=== PATIENT | female | born 1970 | race Caucasian/White ===

== ENCOUNTER → 2017-08-10 | Outpatient (CLI) | payer OTHER | LOC: BMCIMAGING 11:14 | PROVIDERS: ATTEND Internal Medicine Rheumatology | DX: Z03.89 Encounter for observation for other suspected diseases and conditions ruled out (principal); M17.12 Unilateral primary osteoarthritis, left knee; M79.641 Pain in right hand; M79.642 Pain in left hand ==

== ENCOUNTER → 2017-08-12 | Outpatient (CLI) | payer OTHER | LOC: BMCIMAGING 10:39 | PROVIDERS: ATTEND Internal Medicine Rheumatology | DX: Z13.820 Encounter for screening for osteoporosis (principal); M85.89 Other specified disorders of bone density and structure, multiple sites ==

== ENCOUNTER → 2017-09-15 | Outpatient (CLI) | payer OTHER | LOC: BMCIMAGING 09:46 | PROVIDERS: ATTEND Internal Medicine | DX: D25.0 Submucous leiomyoma of uterus (principal); R10.13 Epigastric pain ==

== ENCOUNTER → 2018-05-03 | Outpatient (CLI) | payer OTHER | LOC: FIMAGING 08:01 | PROVIDERS: ATTEND Internal Medicine | DX: R10.13 Epigastric pain (principal) | CPT/HCPCS: 78227; A9537 ==